=== PATIENT | male | born 1945 | race Caucasian/White ===

== ENCOUNTER → 2017-01-09 | Outpatient (CLI) | payer MEDICARE, OTHER ==
[~2017-01-09] MED LIST: ALLEGRA180 MG PO; ASPIRIN LO-DOSE81 MG PO; COREG 3.1253.125 MG PO; FISH OIL1000 MG PO; INVOKANA300 MG PO; LIPITOR80 MG PO; MULTI VITAMIN1 EACH PO; NITROSTAT0.4 MG SL; NOVOLOG100 UNIT/M SUB-Q; PRILOSEC20 MG PO; STOOL SOFTENER100 MG PO; XYZAL5 MG PO
== END | disposition disaster alternative care site (69) ==
LOC: GDIC 13:06
DX: E11.65 Type 2 diabetes mellitus with hyperglycemia (principal)
CPT/HCPCS: G0108